=== PATIENT | female | born 1985 | race Caucasian/White ===

== ENCOUNTER 2022-04-05 07:41 | Observation (INO) ==
[2022-04-05 09:35] LABS: Basophils % 0.2 %; Hemoglobin 11.9 g/dL (11.5-15.4)
[2022-04-05 09:36] LABS: Eosinophils # 0.1 K/mcL (0.0-0.6); Eosinophils % 1.4 %; Hematocrit 36.7 % (35.3-44.9); Immature Granulocytes % 0.5 % (0-4); Immature Platelets 9.6 % (1.1-6.1); Lymphocytes % 11.1 %; Mean Corpuscular HGB Conc 32.4 g/dL (31.6-35.5); Mean Corpuscular Volume 86.4 fL (83.0-100.0); Mean Platelet Volume 11.6 fL (9.4-12.4); Monocytes # 0.4 K/mcL (0.0-1.3); Monocytes % 4.7 %; Neutrophils # 7.2 K/mcL (1.6-8.9); Platelet Count 135 K/mcL (140-400); Red Blood Count 4.25 M/mcL (3.82-4.97); Red Cell Distribution Width 14.6 % (11.5-14.5); Segmented Neutrophils % 82.1 %; White Blood Count 8.8 K/mcL (4.3-11.1)
[2022-04-05 09:48] LABS: Alanine Aminotransferase 20 Units/L (7-52); Albumin 4.6 g/dL (3.5-5.7); Albumin/Globulin Ratio 1.7 (1.1-2.2); Alkaline Phosphatase 46 Units/L (34-104); Aspartate Amino Transferase 18 Units/L (13-39); BUN/Creatinine Ratio 18 (6-26); Bilirubin,Total 0.4 mg/dL (0.3-1.0); Blood Urea Nitrogen 14 mg/dL (6-20); Calcium 9.2 mg/dL (8.6-10.3); Carbon Dioxide 25 mEq/L (23-29); Chloride 105 mEq/L (98-107); Globulin 2.7 g/dL (2.4-3.5); Glucose 105 mg/dL (70-105); Osmolality,Calculated 283 (280-300); Potassium 4.2 mEq/L (3.5-5.1); Sodium 136 mEq/L (136-145); Total Protein 7.3 g/dL (6.4-8.9); eGFR For African Americans > 60 (> 60); eGFR For Non-African Americans > 60 (> 60)
[2022-04-05] MEDS ORDERED: *HR* Heparin 5,000 UNIT/ML VIAL IVP ONE (10:27)
[2022-04-05] MEDS ORDERED: *HR* Heparin 5,000 UNIT/ML VIAL IVP PRN ×2 (10:27)
[2022-04-05] MEDS ORDERED: Ibuprofen 600 MG TABLET PO ONE (10:28)
[2022-04-05] MEDS: Heparin 25,000UNIT/250ML 1/2NS 25,000 UNIT/250 ML IV.SOLN IVC SCH (10:55)
[2022-04-05 11:40] LABS: Heparin anti-factor XA UFH 0.04 IU/mL (0.30-0.70); INR 1.1; Prothrombin Time 12.3 Seconds (9.4-12.1)
[2022-04-05 11:43] LABS: Activated Partial Thrombo Time 21.6 Seconds (26.0-36.0)
[2022-04-05] MEDS ORDERED: *HR* OxyCODONE Immed Rel 5 MG TABLET PO PRN (12:13)
[2022-04-05] MEDS ORDERED: Naloxone 0.4 MG/ML INJ IVP PRN (12:13)
[2022-04-05] MEDS ORDERED: *HR* HYDROcodone/Acet 5/325 mg TABLET PO PRN (12:13)
[2022-04-05] MEDS ORDERED: Acetaminophen 325 MG TABLET PO PRN (12:13)
[2022-04-05] MEDS ORDERED: Ondansetron 4 MG/2 ML VIAL IVP PRN (12:13)
[2022-04-06 01:23] LABS: Basophils % 0.5 %; Eosinophils # 0.3 K/mcL (0.0-0.6); Eosinophils % 5.9 %; Immature Granulocytes % 0.2 % (0-4); Lymphocytes # 2.4 K/mcL (0.6-4.6); Lymphocytes % 41.6 %; Mean Corpuscular HGB Conc 32.4 g/dL (31.6-35.5); Mean Corpuscular Hemoglobin 27.8 pg (28.0-33.3); Mean Corpuscular Volume 85.9 fL (83.0-100.0); Mean Platelet Volume 11.7 fL (9.4-12.4); Monocytes # 0.4 K/mcL (0.0-1.3); Monocytes % 7.1 %; Neutrophils # 2.6 K/mcL (1.6-8.9); Platelet Count 140 K/mcL (140-400); Red Blood Count 3.96 M/mcL (3.82-4.97); Red Cell Distribution Width 14.6 % (11.5-14.5); Segmented Neutrophils % 44.7 %; White Blood Count 5.8 K/mcL (4.3-11.1)
[2022-04-06 01:42] LABS: BUN/Creatinine Ratio 19 (6-26); Blood Urea Nitrogen 14 mg/dL (6-20); Carbon Dioxide 24 mEq/L (23-29); Chloride 106 mEq/L (98-107); Glucose 95 mg/dL (70-105); Osmolality,Calculated 284 (280-300); Potassium 3.9 mEq/L (3.5-5.1); Sodium 137 mEq/L (136-145); eGFR For African Americans > 60 (> 60); eGFR For Non-African Americans > 60 (> 60)
[2022-04-06 07:42] VITALS: O2SAT 97
[2022-04-06 11:13] VITALS: BP 109/70; PULSE 83; TEMP 98.1
[2022-04-06] MEDS: Heparin 25,000UNIT/250ML 1/2NS 25,000 UNIT/250 ML IV.SOLN IVC SCH (14:40)
[2022-04-06] MEDS ORDERED: Apixaban 5 MG TABLET PO SCH (14:45)
== END 2022-04-06 15:08 | disposition home or self-care (01) ==
LOC: 3BNU 07:41 → EMEROOARM 07:41 → SUATTDRO 11:23 → 3BNU 11:50
PROVIDERS: ADMIT Pharmacist; ATTEND Nurse Practitioner